=== PATIENT | female | born 1970 | race African-American/Black ===

== ENCOUNTER 2020-09-30 21:35 | Emergency (ER) | payer OTHER ==
[~2020-09-30] VITALS: Ht 172.7 cm; Wt 113.4 kg
== END 2020-09-30 22:58 | disposition home or self-care (01) ==
LOC: ER 22:00
DX: M54.5 Low back pain (principal); G89.29 Other chronic pain; M13.862 Other specified arthritis, left knee; M13.861 Other specified arthritis, right knee; I10 Essential (primary) hypertension; E11.9 Type 2 diabetes mellitus without complications; F41.9 Anxiety disorder, unspecified
CPT/HCPCS: 99283

== ENCOUNTER 2022-11-09 10:30 | Observation (INO) | payer MEDICARE ==
[2022-11-08 12:15] LABS: ANION GAP 14.3 mmol/L (8-16); CALCIUM 9.3 mg/dL (8.4-10.2); CREATININE, SERUM 0.89 mg/dL (0.57-1.11); POTASSIUM 4.3 mmol/L (3.5-5.1)
[~2022-11-09] VITALS: Ht 172.7 cm; Wt 116.1 kg
[~2022-11-09 10:30] MED LIST: ASPIRIN81 MG PO; BRILINTA90 MG; CARVEDILOL12.5 MG PO; CYCLOBENZAPRINE5 MG PO; DILTIAZEM 24HR180 MG PO; GABAPENTIN400 MG PO; HUMULIN R500 UNIT/2 SQ; LANTUS 3ML100 UNITS/ SQ; LEXAPRO10 MG PO; LYRICA150 MG PO; MULTI-VITAMIN1 EACH PO; OXYCODONE HCL20 M1 PO; OZEMPIC0.25 MG/0. SC; PIOGLITAZONE HC45 MG PO; PROBIOTIC & AC1 EACH PO; PROMETHAZINE-C473 ML PO; PROVENTIL HFA6.7 GM INH; VITAMIN D3; XANAX0.5 MG PO
[2022-11-09] MEDS ORDERED: CEFAZOLIN SODIUM 2 GM ONE (10:52)
[2022-11-09] MEDS ORDERED: LACTATED RINGER'S 1,000 ML ONE (10:52)
[2022-11-09] MEDS ORDERED: DEXTROSE 5% 250ML 250 ML IV ONE (11:55)
[2022-11-09 12:16] LABS: BASOPHILS % 0.7 % (0.0-1.0); EOSINOPHILS # (AUTO) 0.1 (0.0-0.4); EOSINOPHILS % 1.4 % (0.0-6.0); HEMATOCRIT 33.3 % (34.2-44.1); HEMOGLOBIN 10.4 g/dL (12.0-16.0); LYMPHOCYTES # (AUTO) 1.1 (1.0-3.2); LYMPHOCYTES % 19.5 % (18.0-39.1); MEAN CORPUSCULAR HEMOGLOBIN 26.1 pg (28-32); MEAN CORPUSCULAR HGB CONC 31.2 g/dL (31-35); MEAN CORPUSCULAR VOLUME 83.5 fL (81-99); MONOCYTES # (AUTO) 0.5 (0.2-0.8); MONOCYTES % 7.9 % (4.4-11.3); NEUTROPHILS # (AUTO) 4.1 (2.1-6.9); NEUTROPHILS % 70.3 % (38.7-80.0); PLATELET COUNT 220 x10e3/uL (140-360); RED BLOOD COUNT 3.99 x10e6/uL (3.6-5.1); RED CELL DISTRIBUTION WIDTH 14.6 % (11.7-14.4)
[2022-11-09] MEDS ORDERED: BUPIVACAINE HCL 0.5% INJ 30 ML VIAL INJ ONE (12:31)
[2022-11-09] MEDS ORDERED: PHENYLEPHRINE HCL 1% 10 MG/ML VIAL ONE (13:14)
[2022-11-09] MEDS ORDERED: FENTANYL CITRATE/PF 100MCG/2 ML INJ ONE (13:51)
[2022-11-09] MEDS ORDERED: MIDAZOLAM HCL 2 MG/2 ML VIAL ONE (13:51)
[2022-11-09 16:00] VITALS: BP 117/75
[2022-11-09 16:06] VITALS: BP 117/75
[2022-11-09 20:00] VITALS: BP 117/70
[2022-11-09] MEDS: PREGABALIN 50 MG CAP PO SCH (21:11)
[2022-11-09] MEDS: OXYCODONE HCL IR 5 MG TAB PO SCH (21:12)
[2022-11-09 21:15] VITALS: BP 117/70
[2022-11-09] MEDS ORDERED: CARVEDILOL 12.5 MG TAB PO ONE (21:30)
[2022-11-09] MEDS ORDERED: ALPRAZOLAM 1 MG TAB PO ONE (21:30)
[2022-11-09] MEDS: PROMETHAZINE/CODEINE 5 ML UDC PO SCH (21:55)
[2022-11-10 00:56] VITALS: BP 101/59
[2022-11-10 05:12] VITALS: BP 99/65
[2022-11-10 05:56] LABS: BASOPHILS # (AUTO) 0.1 (0.0-0.1); BASOPHILS % 0.9 % (0.0-1.0); EOSINOPHILS # (AUTO) 0.1 (0.0-0.4); EOSINOPHILS % 1.1 % (0.0-6.0); HEMATOCRIT 30.1 % (34.2-44.1); HEMOGLOBIN 9.2 g/dL (12.0-16.0); LYMPHOCYTES # (AUTO) 1.5 (1.0-3.2); LYMPHOCYTES % 19.3 % (18.0-39.1); MEAN CORPUSCULAR HEMOGLOBIN 26.4 pg (28-32); MEAN CORPUSCULAR HGB CONC 30.6 g/dL (31-35); MEAN CORPUSCULAR VOLUME 86.5 fL (81-99); MONOCYTES # (AUTO) 0.7 (0.2-0.8); MONOCYTES % 9.7 % (4.4-11.3); NEUTROPHILS # (AUTO) 5.2 (2.1-6.9); NEUTROPHILS % 68.7 % (38.7-80.0); PLATELET COUNT 210 x10e3/uL (140-360); RED BLOOD COUNT 3.48 x10e6/uL (3.6-5.1); RED CELL DISTRIBUTION WIDTH 14.7 % (11.7-14.4)
[2022-11-10] MEDS: OXYCODONE HCL IR 5 MG TAB PO SCH ×2 (06:03→09:11)
[2022-11-10] MEDS: PROMETHAZINE/CODEINE 5 ML UDC PO SCH (06:04)
[2022-11-10] MEDS ORDERED: DEXTROSE 50% SYRINGE 50 ML IV PRN (07:30)
[2022-11-10] MEDS ORDERED: INSULIN LISPRO 100 UNIT/1 ML 3ML VIAL SQ SCH (07:30)
[2022-11-10] MEDS ORDERED: DILTIAZEM HCL ER 120 MG CAP PO SCH (09:00)
[2022-11-10] MEDS ORDERED: ESCITALOPRAM OXALATE 10 MG TAB PO SCH (09:00)
[2022-11-10] MEDS ORDERED: CARVEDILOL 12.5 MG TAB PO SCH (09:00)
[2022-11-10] MEDS ORDERED: ALPRAZOLAM 1 MG TAB PO SCH (09:00)
[2022-11-10] MEDS: PREGABALIN 50 MG CAP PO SCH (09:10)
[2022-11-10 09:15] VITALS: BP 100/58
== END 2022-11-10 13:45 | disposition home or self-care (01) ==
LOC: OR 10:30 → PACU V 13:50 → OR 14:05 → MED/SURG 15:35
PROVIDERS: ADMIT Internal Medicine; ATTEND Internal Medicine
DX: M86.9 Osteomyelitis, unspecified (principal); E11.65 Type 2 diabetes mellitus with hyperglycemia; I11.0 Hypertensive heart disease with heart failure; I50.30 Unspecified diastolic (congestive) heart failure; F41.1 Generalized anxiety disorder; F32.9 Major depressive disorder, single episode, unspecified; D86.9 Sarcoidosis, unspecified; I73.9 Peripheral vascular disease, unspecified; K21.9 Gastro-esophageal reflux disease without esophagitis; I25.10 Atherosclerotic heart disease of native coronary artery without angina pectoris; D64.9 Anemia, unspecified; E66.09 Other obesity due to excess calories; G47.33 Obstructive sleep apnea (adult) (pediatric); M54.9 Dorsalgia, unspecified; Z88.6 Allergy status to analgesic agent; Z01.810 Encounter for preprocedural cardiovascular examination; Z01.812 Encounter for preprocedural laboratory examination; Z20.822 Contact with and (suspected) exposure to COVID-19; Z79.82 Long term (current) use of aspirin; Z79.4 Long term (current) use of insulin; Z79.84 Long term (current) use of oral hypoglycemic drugs; Z79.85 Long-term (current) use of injectable non-insulin antidiabetic drugs; Z79.899 Other long term (current) drug therapy; Z68.38 Body mass index [BMI] 38.0-38.9, adult
CPT/HCPCS: 0223U; 28820 ×5; 36415 ×3; 73630; 80048; 82948; 85025 ×2; 88307; 88311; 93005; G0378 ×2; J2250; J2370; J3010; J7070; J7121; 88304